=== PATIENT | female | born 1960 | race Caucasian/White ===

== ENCOUNTER 2024-06-02 09:33 | Outpatient (CLI) | payer MEDICARE, OTHER, SELFPAY | END 2024-06-02 09:34 | disposition home or self-care (01) | LOC: NFLDREF 23:35 | PROVIDERS: PCP Family Medicine; Referring Provider Family Medicine; Visit Provider Nurse Practitioner Family | DX: R39.9 Unspecified symptoms and signs involving the genitourinary system (principal); N30.90 Cystitis, unspecified without hematuria | CPT/HCPCS: 87086 ==